=== PATIENT | female | born 1940 ===

== ENCOUNTER → 2021-02-13 14:05 | Outpatient (CLI) | payer MEDICARE, MEDICAID, SELFPAY ==
--- NOTE | ~2021-02-13 | CT_ITS ---
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 TECHNIQUE: Computed tomography (CT) of the chest, abdomen, and pelvis was performed with 100 mL Omnip aque-350 intravenous contrast. Automated exposure control and iterative reconstruction technique were employed. The dose-length product was 628.42 mGy-cm. COMPARISON: None FINDINGS: CHEST CT: Right internal jugular central venous port catheter with distal tip at the caudal superior vena cava. Mild emphysema. 10 mm right apical nodule. Mild atelectasis/scarring at the superior segment of the right lower lobe. Small posteriorly layering left pleural effusion. No pneumonia, pulmonary edema or pneumothorax. Mild cardiomegaly. Small pericardial effusion. Atherosclerotic coronary artery calcific ation. Ectatic ascending thoracic aorta measuring up to 4.2 cm in maximal diameter. No aortic dissect ion. Small sliding-type hiatal hernia. There is mild wall thickening in the distal esophagus likely r elated to radiation esophagitis for treatment of a reported esophageal cancer. 8 mm suspicious left l ower paraesophageal lymph node. 11 mm centrally hypodense left paratracheal lymph node. Likely benign 1.4 cm low-density potentially cystic left thyroid nodule. Mild thoracic spondylosis. No suspicious lytic or blastic bone lesions. ABDOMEN/PELVIS CT: Asymmetric wall thickening along the distal greater curvature of the stomach at the antrum . There ar e multiple peripherally enhancing likely centrally necrotic masses scattered throughout the liver, th e 2 largest measuring 6.8 cm in the lateral segment of the left hepatic lobe and 6.4 cm at the caudal aspect of the right hepatic lobe. There is dilation of the common bile duct measuring up to 1.7 cm m aximal diameter and mild intrahepatic ductal or ductal dilation without evident obstructing stone or mass at the distal common bile duct and which likely sequela of prior cholecystectomy with cholecyste ctomy clips the gallbladder fossa. Pancreas, spleen, left kidney and bilateral adrenal glands are nor mal. 1.8 cm right renal cyst. 3.8 x 2.0 cm gas and fluid containing duodenal diverticulum. There are multiple peripherally enhancing, centrally low density likely necrotic lymph nodes. This in cludes in the right retrocrural space, along the gastrohepatic ligament measuring 2.7 x 1.6 cm as wel l as several upper abdominal retroperitoneal lymph nodes measuring 3.4 x 1.8 cm with several smaller left para-aortic and aortocaval lymph nodes. There is prominent colonic diverticulosis along the desc ending and sigmoid colon without adjacent inflammatory change to suggest diverticulitis. No bowel obs truction. The appendix is not visualized. No pericecal inflammatory change to suggest acute appendici tis. Partially decompressed bladder is unremarkable. The uterus is not identified and has likely been surgically resected. Small amount of ascites in the deep pelvis. No abscess or free intraperineal ga s. No pathologically enlarged pelvic lymphadenopathy. Mild lumbar levoscoliosis with severe spondylos is. No suspicious lytic or blastic bone lesions. IMPRESSION: 1. Small sliding-type hiatal hernia with wall thickening the distal esophagus likely esophagitis rela obed to reported radiation treatment of a lower esophageal malignancy. 2. Multiple peripherally enhancing likely centrally necrotic hepatic masses consistent with metastati c disease. 3. Multiple similar-appearing peripherally enhancing centrally hypoenhancing likely metastatic lymph nodes in the chest and upper abdomen as detailed above. 4. 10 mm right apical nodule which could represent metastatic disease or potentially primary lung can cer. 5. Asymmetric wall thickening at the anterior gastric antrum which could be due to peristalsis, pepti c ulcer disease
[2021-02-13 14:32] LABS: Estimated Glomerular Filt Rate > 60
== END ==
PROVIDERS: PCP Internal Medicine
DX: C15.9 Malignant neoplasm of esophagus, unspecified (principal); C15.5 Malignant neoplasm of lower third of esophagus; K44.9 Diaphragmatic hernia without obstruction or gangrene; R91.8 Other nonspecific abnormal finding of lung field; J90 Pleural effusion, not elsewhere classified; I51.7 Cardiomegaly
CPT/HCPCS: 71260; 74177; Q9967